=== PATIENT | male | born 1985 | race Hispanic/Latino ===

== ENCOUNTER 2019-04-07 20:44 | Emergency (ER) | payer OTHER, SELFPAY ==
[2019-04-07 20:45] VITALS: BP 174/106; PULSE 72; RESP 18; TEMP 36.6; O2SAT 99; BMI 25.2
[2019-04-07 20:52] VITALS: BP 153/104
--- NOTE | 2019-04-07 21:08 | EKG12_ITS ---
Test Reason : HTN Blood Pressure : / mmHG Vent. Rate : 063 BPM Atrial Rate : 063 BPM P-R Int : 136 ms QRS Dur : 102 ms QT Int : 382 ms P-R-T Axes : 052 034 054 degrees QTc Int : 390 ms Normal sinus rhythm Normal ECG Confirmed by SHRUTHI DUNN, CHARITO ([id number]), rewrite editor CRYSTAL DEMPSEY ([id number]) on 04/09/2019 1:01:05 PM Referred By: CRISTY Confirmed By:CHARITO HAWKINS MD
--- NOTE | 2019-04-07 21:14 | ED.RN ---
NO OLD EKGS IN MUSE
--- NOTE | 2019-04-07 22:02 | ED.VIS.GEN ---
History of Present Illness Chief Complaint: Hypertension Informant: Patient Onset: Today - Several hours prior to arrival Context: Sudden Onset - Relatively, while sitting at the table at home, eating dinner Timing: Continuous Quality: Tingling Location: Ulnar aspect left upper extremity from elbow to little finger Current Severity: Mild Maximum Severity: Moderate Worsened by: Nothing particular Relieved by: Nothing Associated Symptoms: None Narrative: Patient started having tingling in his left upper extremity, felt like his blood pressure might be elevated so he went to check it and it was 154/110, which made him very concerned and so he presents to the ER. He denies any chest pain or shortness of breath, lightheadedness, or other focal neurologic symptoms. No recent injury, he did not hit his elbow or his head recently. He denies bending his elbow in an unusual way, that he can recall. He does not have a doctor, he has a history of elevated blood pressure readings, but they have not been consistent. Past Medical History - Allergies and Home Meds Allergies/Adverse Reactions: Allergies No Known Allergies Allergy (Verified 04/07/19 20:46) Primary Care Physician: NOT,DEFINED [NON-STAFF] - Doctors: none Past Medical History: None Lives: Alone Smoking Status: Former smoker Drugs: None Review of Systems General: Denies: Chills, Fever, Sweats Eyes: Denies: Visual changes - bilaterally, Diplopia ENT: Denies: Rhinorrhea, Sore throat Cardiovascular: Denies: Chest pain, Palpitations Respiratory: Denies: Dyspnea, Cough, Dyspnea on exertion Gastrointestinal: Denies: Abdominal pain, Nausea, Vomiting, Diarrhea, Melena, Hematochezia Genitourinary: Denies: Dysuria, Hematuria, Frequency Musculoskeletal: Denies: Neck pain, Back pain, Swelling, Extremity Pain Skin: Denies: Rash, Wounds Neurological: Reports: Numbness. Denies: Headache, Weakness Physical Exam Vital Signs/Narrative: Vital Signs Temp Pulse Resp BP Pulse Ox 04/07/19 20:52 153/104 H 04/07/19 20:45 98 F 72 18 174/106 H 99 Inital Vital Signs reviewed: Yes General: Well nourished, Well developed, No Acute Distress Head: Normocephalic, Atraumatic Eyes: Perrl, EOMI ENT: Moist mucous membranes, No rhinorrhea Neck: Supple, Nontender Cardiovascular: Regular rate, Regular rhythm, No murmurs Respiratory: No distress, CTA bilaterally, Chest nontender Abdomen: Soft, Nontender, Nondistended, Normal bowel sounds Back: Nontender, Normal Inspection Extremities: Nontender, No edema, - - Positive Tinel's left ulnar tunnel at the medial elbow. Full range of motion throughout all joints of all 4 extremities. No left elbow bony tenderness. No signs of cellulitis or skin abnormality. Skin: Normal color, No rash, No Trauma Neurological: Alert, Oriented x3, Cranial nerves II-XII grossly intact, Normal Strength - Including ulnar, medial, radial nerves left upper extremity, Normal Gait, Parasthesia - In an ulnar nerve distribution left upper extremity, involving the ulnar aspect of his forearm and hand, the fifth finger, and only the ulnar half of the ring finger. Normal sensation elsewhere. Psychological: Normal affect, Normal Mood Diagnostic/Tx/Re-eval - Rhythm Strip Rhythm Strip: Sinus Rhythm Rate: 65 Ectopy: None - EKG Initial EKG Interpretation: Sinus Rhythm, No Acute Injury Pattern - normal EKG Prior: No Prior - Medical Decision Making As expected, his EKG is normal. His exam is consistent with an ulnar peripheral neuropathy. Unknown why. I recommend follow-up if it does not resolve on its own after a day or 2. More than likely it is a neurapraxia assuming it resolved spontaneously. His blood pressure on reexamination is 135/99. I do not think he needs to be placed on a blood pressure medication for this, he will be given a PCP to follow-up with. I explained all this to him and he is comfortable with that plan. ED Disposition - Plan for ED Patient: Disposition: Home or Assisted Living Diagnosis: Neurapraxia of left ulnar nerve, Episode of hypertension Instructions: HYPERTENSION, To Be Confirmed, NEUROPATHY, Peripheral Referrals: Zahraa Hitchcock MD [STAFF PHYSICIAN] - (call for appt)
[2019-04-07 22:13] VITALS: BP 143/94; PULSE 78; RESP 18; O2SAT 97
== END 2019-04-07 22:14 | disposition home or self-care (01) ==
PROVIDERS: Emergency Provider Emergency Medicine
DX: S54.02XA Injury of ulnar nerve at forearm level, left arm, initial encounter (principal); X58.XXXA Exposure to other specified factors, initial encounter; Y93.9 Activity, unspecified; Y92.9 Unspecified place or not applicable; Y99.9 Unspecified external cause status; R03.0 Elevated blood-pressure reading, without diagnosis of hypertension; Z87.891 Personal history of nicotine dependence
CPT/HCPCS: 93005; 99282